=== PATIENT | male | born 1950 | race Caucasian/White ===

== ENCOUNTER → 2016-06-05 | Outpatient (CLI) | payer BC ==
--- NOTE | 2016-06-08 06:27 | SLEEPCENT ---
DATE OF PROCEDURE: 06/05/2016 ORDERED BY: RACHEL Hawkins Nocturnal polysomnography was performed due to concern for the obstructive sleep apnea syndrome in this patient with a history of excessive somnolence. 7 hours and 35 minutes of data were reviewed. There were 413 minutes of sleep identified. Sleep latency was normal at 8 minutes. Rapid eye movement (REM) was normal at 73 minutes. Sleep architecture showed poor progression. Improvement in sleep architecture was seen following interventions. 4 REM periods were appreciated. Overall sleep efficiency was 91.7%. The patient's EKG showed a sinus rhythm with an average heart rate of 72 beats per minute. Occasional unifocal ventricular ectopic beats were seen. EEG showed normal waveforms for awake and sleep. There were 163 respiratory events identified of 10 seconds in duration or greater for an apnea hypopnea index of 23.7. The events were associated with oxygen desaturations into the 70s. Having clearly established the presence of obstructive sleep apnea syndrome, testing was stopped shortly after 11 p.m. for the application of pressure therapy. The patient was fit with a [employer] Quattro full face mask of medium size. 4 cm of water pressure were applied to the circuit and the lights were again extinguished. Throughout the remaining hours of testing, pressure titration was performed to an optimal pressure of +7. IMPRESSION: Obstructive sleep apnea syndrome (G47.33). RECOMMENDATION: Nightly use of pressure therapy 7 cm of water.
== END ==
LOC: M SLEEP 19:33
PROVIDERS: ATTEND Nurse Practitioner Adult Health
DX: G47.30 Sleep apnea, unspecified (principal)